=== PATIENT | female | born 1985 | race Caucasian/White ===

== ENCOUNTER 2017-05-23 07:30 | Inpatient (IN) | payer OTHER ==
[2017-05-23] MEDS ORDERED: Penicillin G Potassium IV* 5,000,000 UNITS in NS 0.9% 100 ML* 100 ML IVPB ONE (08:59)
[2017-05-23] MEDS ORDERED: Oxytocin in LR* 20 UNITS/1,000 ML BAG IVPB SCH (09:00)
[2017-05-23] MEDS ORDERED: Oxytocin in LR* 20 UNITS/1,000 ML BAG IVPB ONE (09:04)
[2017-05-23 09:24] LABS: Hematocrit 30 % (35-47); Hemoglobin 9.3 g/dl (12.0-16.0); Mean Corpuscular HGB Conc 32 g/dl (31-36); Mean Corpuscular Hemoglobin 23 pg (27-31); Mean Corpuscular Volume 73 fL (80-97); Mean Platelet Volume 8 um3 (7.4-10.4); Red Blood Count 4.06 10^6/ul (4.0-5.4); Red Cell Distribution Width 17 % (10.5-15); White Blood Count 10.1 10^3/ul (3.5-10.8)
[2017-05-23 09:25] LABS: Comments Flag Yes
[2017-05-23 09:26] LABS: Add Diff/Slide Review? Slide Review Added
[2017-05-23 10:01] LABS: Albumin 3.1 g/dL (3.2-5.2); BUN/Creatinine Ratio 7.6 (8-20); Calcium 8.7 mg/dL (8.6-10.3); EGFR African American 134.3 (>60); EGFR Non-African American 104.5 (>60); Globulin 2.7 g/dL (2-4); Potassium 4.3 mmol/L (3.5-5.0); Total Bilirubin 0.6 mg/dL (0.2-1.0); Total Protein 5.8 g/dL (6.4-8.9)
[2017-05-23] MEDS: Penicillin G Potassium IV* 2,500,000 UNITS in NS 0.9% 100 ML* 100 ML IVPB SCH ×3 (13:30→22:40)
[2017-05-23] MEDS ORDERED: Misoprostol TAB* 100 MCG PO ONE (15:09)
[2017-05-23] MEDS ORDERED: Misoprostol TAB* 100 MCG ONE (15:11)
[2017-05-24] MEDS ORDERED: Misoprostol TAB* 100 MCG PO ONE (01:30)
[2017-05-24] MEDS: Penicillin G Potassium IV* 2,500,000 UNITS in NS 0.9% 100 ML* 100 ML IVPB SCH (02:05)
[2017-05-24] MEDS ORDERED: OBEPIDURAL* 250 ML ONE (02:51)
[2017-05-24] MEDS ORDERED: Famotidine TAB* 20 MG PO PRN (03:51)
[2017-05-24] MEDS ORDERED: Phenylephrine IV* 40 MCG/ML 10 ML SYRINGE IV PUSH PRN ×2 (03:51)
[2017-05-24] MEDS ORDERED: EPHEDrine (Pressors)* 50 MG/ML VIAL IV PUSH PRN ×2 (03:51)
[2017-05-24] MEDS ORDERED: Sodium Citrate/Citric Acid* 15 ML UDC PO PRN (03:51)
[2017-05-24] MEDS ORDERED: OBEPIDURAL* 250 ML EPIDURAL SCH (04:00)
[2017-05-24] MEDS ORDERED: Witch Hazel PAD* JAR TOPICAL PRN (05:34)
[2017-05-24] MEDS ORDERED: Acetaminophen TAB* 325 MG PO PRN (05:34)
[2017-05-24] MEDS ORDERED: Dibucaine 1% 28.35 GM TUBE PR PRN (05:34)
[2017-05-24] MEDS ORDERED: Glycerin ADULT SUPP PR PRN (05:34)
[2017-05-24] MEDS: Ibuprofen TAB* 600 MG PO PRN ×3 (06:40→20:03)
[2017-05-24] MEDS: Simethicone TAB* 80 MG TAB.CHEW PO SCH ×2 (08:30→12:30)
[2017-05-24] MEDS: Docusate CAP* 100 MG PO SCH ×3 (10:09→20:03)
[2017-05-25 06:59] LABS: Hematocrit 26 % (35-47); Hemoglobin 8.2 g/dl (12.0-16.0); Mean Corpuscular HGB Conc 32 g/dl (31-36); Mean Corpuscular Hemoglobin 23 pg (27-31); Mean Platelet Volume 7 um3 (7.4-10.4); Red Blood Count 3.59 10^6/ul (4.0-5.4); Red Cell Distribution Width 17 % (10.5-15); White Blood Count 8.8 10^3/ul (3.5-10.8)
[2017-05-25 07:06] LABS: Comments Flag Yes; Mean Corpuscular Volume 73 fL (80-97)
[2017-05-25] MEDS: Ferrous Gluconate TAB* 324 MG TAB PO SCH ×2 (08:23→22:33)
[2017-05-25] MEDS: Docusate CAP* 100 MG PO SCH ×4 (08:23→22:34)
[2017-05-25] MEDS: Ibuprofen TAB* 600 MG PO PRN ×3 (08:24→22:34)
[2017-05-26] MEDS: Docusate CAP* 100 MG PO SCH (09:27)
[2017-05-26] MEDS: Ferrous Gluconate TAB* 324 MG TAB PO SCH (09:27)
[2017-05-26 11:20] VITALS: BP 143/80
== END 2017-05-26 17:18 | disposition home or self-care (01) | DRG 774 ==
LOC: MCHOBOUT 07:30 → MCHOB 07:54
PROVIDERS: ADMIT Obstetrics & Gynecology; ATTEND Obstetrics & Gynecology
PROC: 3E0P7VZ Introduction of Hormone into Female Reproductive, Via Natural or Artificial Opening (ICD-10-PCS; principal; 2017-05-24)
PROC: 10E0XZZ Delivery of Products of Conception, External Approach (ICD-10-PCS; 2017-05-24)
PROC: 4A1HXCZ Monitoring of Products of Conception, Cardiac Rate, External Approach (ICD-10-PCS; 2017-05-24)
DX: O10.92 Unspecified pre-existing hypertension complicating childbirth (principal); Z68.43 Body mass index [BMI] 50.0-59.9, adult; E66.01 Morbid (severe) obesity due to excess calories; O90.81 Anemia of the puerperium; O99.824 Streptococcus B carrier state complicating childbirth; O99.214 Obesity complicating childbirth; Z3A.39 39 weeks gestation of pregnancy; Z37.0 Single live birth
CPT/HCPCS: 36415; 76815; 80053; 85025; 86850; 86900; 86901; A9270-GY; J2540; S0191

== ENCOUNTER 2018-10-23 11:48 | Emergency (ER) | payer OTHER ==
[2018-10-23 12:11] VITALS: BP 139/91
--- NOTE | 2018-10-23 12:52 | UC ---
Throat Pain/Nasal Kofi HPI - HPI Summary HPI Summary: 32 year old female with h/o sore throat, body aches, fever, chills x 3 days, worsening over time. painful swallowing, + swelling in throat, pain with breathing but no difficulty. mild cough, non-productive. no ear pain, sinus pain. no recent ABX use. - History of Current Complaint Chief Complaint: UCRespiratory Stated Complaint: SORE THROAT FEVER Time Seen by Provider: 10/23/18 12:41 Hx Obtained From: Patient Hx Last Menstrual Period: 10/21/18 ?: No Onset/Duration: Sudden Onset, Lasting Days, Worse Since Severity: Severe Pain Intensity: 8 Pain Scale Used: 0-10 Numeric Cough: Nonproductive Associated Signs & Symptoms: Positive: Dysphagia, Fever - Allergies/Home Medications Allergies/Adverse Reactions: Allergies Allergy/AdvReac Type Severity Reaction Status Date / Time No Known Allergies Allergy Verified 10/23/18 12:11 Home Medications: Home Medications Acetaminophen [Pain Relief] 1,000 mg PO ONCE PRN 10/23/18 [History Confirmed 09/08] PMH/Surg Hx/FS Hx/Imm Hx Previously Healthy: Yes - Surgical History Surgical History: None - Social History Alcohol Use: None Substance Use Type: None Smoking Status (MU): Never Smoked Tobacco Have You Smoked in the Last Year: No - Immunization History Most Recent Influenza Vaccination: 03/05/2017 Most Recent Tetanus Shot: unknown Most Recent Pneumonia Vaccination: none Review of Systems All Other Systems Reviewed And Are Negative: Yes Constitutional: Positive: Fever, Chills, Fatigue ENT: Positive: Sore Throat Respiratory: Positive: Cough Is Patient Immunocompromised?: No Physical Exam Triage Information Reviewed: Yes Appearance: No Pain Distress, Well-Nourished, Ill-Appearing - moderate Vital Signs: Initial Vital Signs Temp 97.8 F 10/23/18 12:05 Pulse 120 10/23/18 12:05 Resp 18 10/23/18 12:05 BP 139/91 10/23/18 12:05 Pulse Ox 100 10/23/18 12:05 Vital Signs Reviewed: Yes Eyes: Positive: Conjunctiva Clear ENT: Positive: Hearing grossly normal, Pharyngeal erythema, TMs normal, Tonsillar swelling, Tonsillar exudate, Uvula midline. Negative: Pharynx normal , Sinus tenderness Neck: Positive: Supple, Nontender, Enlarged Nodes @ - b/l submand. Negative: Nuchal Rigidity Respiratory: Positive: Chest non-tender, Lungs clear, Normal breath sounds, No respiratory distress, No accessory muscle use. Negative: Respiratory distress, Decreased breath sounds, Crackles, Rhonchi, Stridor, Expiration, Inspiration Cardiovascular: Positive: RRR, No Murmur Neurological: Positive: Alert Psychological Exam: Normal Skin: Negative: Rashes Throat Pain/Nasal Course/Dx - Course Course Of Treatment: rapi dstrep +, tx'd with amoxicillin, f/ u with PCP if no improvement, OTCs for symptoms. - Differential Dx/Diagnosis Differential Diagnosis/HQI/PQRI: Pharyngitis, Tonsillitis Provider Diagnosis: Strep throat Discharge - Sign-Out/Discharge Documenting (check all that apply): Patient Departure All imaging exams completed and their final reports reviewed: No Studies - Discharge Plan Condition: Good Disposition: HOME Prescriptions: Amoxicillin PO (*) [Amoxicillin 500 MG CAP*] 500 mg PO Q12H #20 cap Patient Education Materials: Strep Throat (ED) Referrals: No Primary Care Phys,NOPCP [Primary Care Provider] - Additional Instructions: - Antibiotics as directed - Increase fluid intake - Follow up with primary physician if no improvement within 24-48 hours - Tylenol/ motrin as needed for pain, fever - Good hygiene, avoid sharing drinks. - Billing Disposition and Condition Condition: GOOD Disposition: Home
== END 2018-10-23 12:59 | disposition home or self-care (01) ==
LOC: UCEAST 11:48
DX: J02.0 Streptococcal pharyngitis (principal)
CPT/HCPCS: 87651; 99212; G0463